=== PATIENT | male | born 1965 | race Caucasian/White ===

== ENCOUNTER 2017-06-06 01:12 | Inpatient (IN) ==
[2017-06-06] MEDS ORDERED: NS 1,000 ML IV ONE (01:21)
[2017-06-06] MEDS ORDERED: SALINE FLUSH 10ml SYRINGE IVF PRN (01:21)
[2017-06-06] MEDS ORDERED: ONDANSETRON 4 MG/2 ML INJECTION IVP ONE (01:21)
[2017-06-06] MEDS ORDERED: METOPROLOL 5mg/5ml INJECTION IVP ONE (01:32)
--- NOTE | 2017-06-06 01:57 | Emergency Department Report ---
Nausea/Vomiting/Diarrhea HPI - General Chief complaint: Nausea/Vomiting/Diarrhea Stated complaint: Vomiting Time Seen by Provider: 06/06/17 01:20 Source: patient, family, old records reviewed Mode of arrival: ambulatory Limitations: no limitations - History of Present Illness HPI Narrative: 52yo man presents to the ER for evaluation of nausea/vomiting. Pt has an extensive hx, including coarctation of the aorta, treated at age 5 and 42yo. Pt has a graft in place now; is supposed to be taking plavix (has an allergy to ASA ), but he has discontinued all of his medications. He had an OK 2 years ago ( explains it as 'aspiration' that caused his heart to stop); since then, pts states that his personality has changed - he is more angry/taciturn/ low frustration tolerance. Pt now refuses to see a physician; when his medication refills run out, he stops taking all of his medications. Pts states that his HTN, tachycardia, and other sx now are similar to his sx prior to his dx of coarctation 10 years ago. is afraid for the pts life; pt is minimizing his sx, wants treatment for his nausea, and discharge home. MD complaint: nausea, vomiting Onset (ago): hour(s) (24) Description of Vomiting: watery Description of Diarrhea: water Relieving factors: none Exacerbating factors: movement Associated symptoms: cough, nausea/vomiting, shortness of breath, weakness - Related Data Allergies Allergy/AdvReac Type Severity Reaction Status Date / Time aspirin Allergy Unknown EYE Verified 06/06/17 02:06 SWELLING amoxicillin AdvReac Intermediate HYPOTENSION Verified 06/06/17 02:06 clavulanic acid AdvReac Intermediate HYPOTENSION Verified 06/06/17 02:06 Review of Systems All systems: reviewed and negative except as stated Constitutional: Reports: as per HPI. Denies: fever, chills, weakness, weight change, night sweats Cardiovascular: Reports: as per HPI, chest pain, palpitations, dyspnea on exertion. Denies: orthopnea, edema, syncope, paroxysmal nocturnal dyspnea Gastrointestinal: Reports: as per HPI, nausea, vomiting, diarrhea (With vomiting ). Denies: abdominal pain, constipation, hematemesis, melena, hematochezia Neurological: Reports: as per HPI. Denies: headache, weakness, numbness, paresthesias, confusion, abnormal gait, vertigo Psychiatric: Reports: as per HPI, anxiety. Denies: depression, suicidal thoughts, homicidal thoughts, auditory hallucinations, visual hallucinations [facility] Patient Stated Medical History Cardiac Arrhythmia Yes Hypertension Yes MRSA Yes Physical Exam - Limitations Limitations: no limitations - General General appearance: alert, in no apparent distress - Normal Exams: Head:: Normocephalic without trauma Eyes:: Pupils are PERRLA w/ EOMI, No scleral icterus, irritation, or foreign bodies noted ENMT:: No facial trauma, nasal exudates, pharyngeal erythema, or exudates are noted Neck:: Full range of motion, without adenopathy Chest/Respirations:: Clear all cabrera, with good airflow, and symmetry bilaterally Lymphatic:: No lymphadenopathy Musculoskeletal:: No tenderness, or deformity noted, good range of motion, all extremities Integumentary:: No rashes, hives, or bruising noted, hair and nails, without abnormality Neurological:: Patient is alert, and oriented, cranial nerves, motor/sensory/ cerebellar, exams w/o gross deficits - Cardiovascular Cardiovascular exam: Present: normal rhythm, tachycardia, normal heart sounds, + S1, +S2. Absent: regular rate, systolic murmur, diastolic murmur, +S3, +S4 - Psychiatric Psychiatric exam: Present: agitated, anxious Course - Consultations Consultation #1: José Telemed: Time: 02:32 Vital Signs Pulse Rate 166 H 06/06/17 01:18 Respiratory Rate 20 06/06/17 01:18 Blood Pressure 210/153 H 06/06/17 01:18 Pulse Oximetry 97 06/06/17 01:18 Temperature 97.0 F 06/06/17 01:59 Pulse Rate 157 H 06/06/17 02:37 Respiratory Rate 24 06/06/17 02:37 Blood Pressure 171/99 H 06/06/17 02:37 Pulse Oximetry 96 06/06/17 02:37 Nausea/Vomiting/Diarrhea - [facility] Narrative Medical decision making narrative: On review of pts telemetry, it appeared that his tachy rhythm may be a-flutter. Since the dose of metoprolol had failed to improve his rate or BP, adenocard was given. There was no improvement with 6mg, but 12mg slowed pts heart rate enough to confirm A-flutter. Diltiazem 25mg was then given, with immediate improvement in pts rate and BP. Hospitalist was contacted - agreed to admit to CCU. Diltiazem drip was ordered to maintain rate and BP. - Differential Diagnosis Likely: traveler's diarrhea, gastroenteritis, drug-induced nausea and vomiting, dehydration (OK, Coarctation, ) - Medical Records Attestation: I reviewed the patient's medical records. - Lab Data Attestation: I reviewed the patient's lab results. Result diagrams: 06/06/17 01:40 06/06/17 01:40 Lab Results 06/06/17 06/06/17 Range/Units 01:40 01:40 WBC 13.3 H (4.5-11.0) T/MM3 RBC 5.21 (4.50-5.90) M/MM3 Hgb 16.3 (13.5-17.5) GM/DL Hct 47.0 (41-53) % MCV 90.2 (80-100) UM3 MCH 31.3 (26-34) UUG MCHC 34.7 (31-37) GM/DL RDW Std Deviation 41.2 (36.9-50.2) FL Plt Count 191 (130-400) T/MM3 MPV 9.5 (9.4-12.4) UM3 Immature Gran % (Auto) 0.2 (0.0-0.5) % Neut % (Auto) 84.6 H (33-66) % Lymph % (Auto) 7.4 L (23-45) % [place] % (Auto) 7.3 (0-9.0) % Eos % (Auto) 0.3 (0-4) % Baso % (Auto) 0.2 (0-2) % Neut # (Auto) 11.2 H (1.8-7.7) T/MM3 Lymph # (Auto) 1.0 (1-4.8) T/MM3 [place] # (Auto) 1.0 H (0-0.8) T/MM3 Eos # (Auto) 0.0 (0-0.5) T/MM3 Baso # (Auto) 0.0 (0-0.2) T/MM3 Abs Immat Gran (auto) 0.02 (0.00-0.03) T/MM3 Turbidity < 20 (0-20) Sodium 139 (134-144) MEQ/L Potassium 4.1 (3.6-5) MEQ/L Chloride 99 (98-107) MEQ/L Carbon Dioxide 28 (22-30) MEQ/L Anion Gap 12 (5-15) MEQ/L BUN 16.0 (9-20) MG/DL Creatinine 1.0 (0.8-1.5) MG/DL GFR Calculation 79 BUN/Creatinine Ratio 16 (6-26) RATIO Glucose 140 H (75-110) MG/DL Calculated Osmolality 271 (261-280) MOSM/KG Calcium 9.2 (8.4-10.2) MG/DL Icterus Index < 2 (0-7) Troponin I 0.058 (0-0.12) ng/ml B-Natriuretic Peptide 6940 H (0-175) pg/mL Lipase 49 (23-300) U/L Specimen Hemolysis < 15 (0-25) - Radiology Data Attestation: I reviewed the patient's radiology results. KUB: No acute CT pathology. Nonobstructing bowel gas pattern. No free air or fluid under the diaphragm. - EKG Data EKG #1 EKG attestation: Yes: I reviewed and interpreted this EKG. EKG shows normal: sinus rhythm, intervals, QRS complexes, ST-T waves Rate: tachycardia Disposition Clinical Impression: Coarctation of aorta Atrial flutter Qualifiers: Atrial flutter type: unspecified Qualified Code(s): I48.92 - Unspecified atrial flutter Nausea & vomiting Qualifiers: Vomiting type: unspecified Vomiting Intractability: non-intractable Qualified Code(s): R11.2 - Nausea with vomiting, unspecified Disposition: 02 To [facility] Acute Care Print Language: Persian Condition: Improved Referrals: Jarocho Mascorro MD [Family Provider] - Time of Disposition: 03:15 - Seen By: physician
[2017-06-06] MEDS ORDERED: ENOXAPARIN 80 MG/0.8 ML INJECTION SQ ONE (02:15)
[2017-06-06] MEDS ORDERED: ADENOSINE 6mg/2ml INJECTION IVP ONE (02:41)
[2017-06-06] MEDS ORDERED: DiltiaZEM 25 MG/5 ML INJECTION IVP ONE (02:59)
[2017-06-06] MEDS ORDERED: ADENOSINE IVP ONE (05:47)
--- NOTE | 2017-06-06 05:47 | History & Physical Report ---
History of Present Illness Date: 06/06/17 Chief complaint: n/v HPI: Please note that the patient was seen via telemedicine with nursing assistance on 06/06/2017 Mr. Bautista is a 52 yo man with h/o coarctation of the aorta s/p surgery at age 3.5 and then in 2007 aortic sheath? at [facility], and essential HTN poor compliance. Patient is accompanied by who is scared for and frustrated by as he has not been willing to take meds since running out in December, and he refuses to f/u with a doctor. 06/05/2017 after one day of n/v with then palpitations he was willing to come to ED. In ED patient with tachycardia not responsive to 1L NS and metoprolol 5mg IV so I was called. Cardiology eval recc with adenosine indeed suggested and patient found to be in aflutter with cardizem 20mg IV once given with rate then 80s and gtt started subsequently. No chest pain or sob, but definitely recent fevers and chills. When asked about diarrhea, the patient said yes, "coming out of both ends." Aware of recent norovirus locally, i asked about sick contacts. 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. Review of Systems All systems PM: 10-point ROS was reviewed, no additional remarkable complaints except PFSH Patient Stated Medical History Cardiac Arrhythmia Yes Hypertension Yes MRSA Yes Surgical History: oartic surgery at 5.5, and then 2007 - Social History Smoking status: Former smoker Medications Allergies Allergy/AdvReac Type Severity Reaction Status Date / Time aspirin Allergy Unknown EYE Verified 06/06/17 02:06 SWELLING amoxicillin AdvReac Intermediate HYPOTENSION Verified 06/06/17 02:06 clavulanic acid AdvReac Intermediate HYPOTENSION Verified 06/06/17 02:06 Exam Vital Signs: Temperature 97.0 F 06/06/17 01:59 Pulse Rate 157 H 06/06/17 02:37 Respiratory Rate 24 06/06/17 02:37 Blood Pressure 171/99 H 06/06/17 02:37 Pulse Oximetry 96 06/06/17 02:37 Telemetry Rhythm: A-flutter Height/Weight/BMI: Height 1.8 m Weight 77.4 kg - Constitutional Present: mild distress - Routine HEENT Exam Head: Present: normocephalic Eye: Present: EOMI - Routine Neck Exam Present: full ROM - Routine Respiratory Exam Present: CTA bilaterally. Absent: accessory muscle use - Routine Cardiovascular Exam Present: S1, S2 Comments: sounds regular on exam now with aflutter known, noted mild systolic murmur, no edema - Routine Abdominal Exam Present: soft, normoactive bowel sounds Comments: hyperactive, no guarding - Routine Extremities Exam Absent: cyanosis, clubbing, edema - Routine Back/Spine/Pelvis Exam Back/Spine: Present: full ROM - Routine Skin Exam Present: intact - Routine Neurological Exam Present: alert, oriented X3, CN II-XII intact Results - Labs CBC & Chem 7: 06/06/17 01:40 06/06/17 06:20 Assessment and Plan (1) Atrial flutter Current visit: Yes Status: Acute (2) Gastroenteritis Current visit: Yes Status: Acute (3) HTN (hypertension) Current visit: Yes Status: Acute (4) Coarctation of aorta Problem details: surgery x 2 in the past Current visit: Yes Status: Acute Assessment and Plan: 1. Atrial flutter with RVR now controlled rate on cardizem gtt. Cardiology to see with AM electrolytes, TSH, troponin. 2 a contributor along with noncomplliance. 2. Acute infectious VGE likely the local norovirus. IVF, repeat labs, prns for nausea, etc. 3. Essential HTN with noncompliance. Need to confirm prior meds. 4. Coarctation of the aorta s/p multiple surgeries--cardiology to see. 5. Hyperglycemia, likely stress induced. Recheck. Resuscitation Status: Full Code - Physician Narriative Physician: Seema Wellington MD Narriative: 06/06/17 13:18 Dr. Garcia's note reviewed. Mr. Bautista interviewed and examined. provide supplemental history, old records reviewed CC: Nausea/vomiting HPI: Mr. Bautista is a 52-year-old male with history of congenital heart disease/ coarctation of the aorta who had aortic repair done at [facility] in 2008 after prior surgery at age 5-1/2 or 6 years of age. He reports he's been in generally good health recently until 24 hours prior to admission when he developed cough followed by nausea and repetitive episodes of emesis of clear phlegm. Coughing seemed to trigger the episodes of vomiting. He was able to take clear liquids and Gatorade for a period of time but vomiting persisted until he simply had dry heaves. He denies bilious emesis or hematemesis. His believes he had fevers as he had night sweats and the patient ports feeling hot and cold with sweats intermittently. He had frequent formed stools in conjunction with the upper GI symptoms. He works at [employer] and subsequently has multiple exposures; his son also had a cough recently per history of the . Due to ongoing nausea and emesis he presented to the emergency room yesterday evening where he was found to be in narrow complex tachycardia with rate in 166. Blood pressure was elevated at 210/158. Adenosine was given and after 12 mg dose rhythm was confirmed to be atrial flutter. Diltiazem was initiated and he was admitted to the ICU on diltiazem drip. Patient denies preceding chest pain or awareness of palpitations. He denies lightheadedness but reports that he is felt weird. He's not been taking medications recently and his expressed concern that since an episode of respiratory arrest 2 years ago related to aspiration that required brief CPR (but did not require intubation) the patient has neglected his health and experienced personality change. He has not followed up with physicians in some time and has not refilled medications when prescriptions . PH/SH/FH: Congenital heart disease/coarctation of the aorta, hypertension, mitral valve endocarditis as a child, congestive heart failure prior to surgical repair of aorta. 2 aortic surgeries at age 5-06/26 and 2008. FH-patient is adopted, family history unknown. SH-remote history of tobacco use discontinued more than 25 years ago, occasional social use of alcohol, no illicit drug use. 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 Dr. Jarocho Mascorro is his primary care physician , Dr. Coffman his swamper. His is his alternate decision maker and the patient is a full code. ROS: 10 point review as described by Dr. Garcia/history of present illness. EXAM: General-NAD, alert; pulse 86 on diltiazem drip, blood pressure 182/90, 97.8, 92 % room air HEENT-PERRL, EOMI without nystagmus, conjunctiva clear, sclera anicteric, conjugate gaze, facial structures symmetric, oropharynx clear, neck supple and without adenopathy Lungs-respirations nonlabored, good airflow, breath sounds clear Cardiac-irregularly irregular rhythm, S1-S2 Abd-soft, nontender, without palpable mass, bowel sounds diminished but present Ext-without edema Skin-no generalized rash or wounds Neuro-cranial nerves 3-12 intact, motor tone/power normal upper and lower extremities, sensation intact to light touch and cold 4 extremities, no tremor Psych-calm, distant DATA: Chest x-ray and KUB is reviewed by myself demonstrating mild cardiomegaly and minor vascular congestion, abdominal films are unremarkable. Twelve-lead EKG also reviewed by myself demonstrating rapid narrow irregular tachycardia; subsequent telemetry with clear atrial flutter with variable rates White count 13.3 without left shift, hemoglobin 16.3. Electrolytes unremarkable , BUN 16, creatinine 1.0, glucose 160. TSH 3.01 ProBNP 6940, troponin 0.058-0.060 UA concentrated, +1 ketones A/P: Atrial flutter with RVR CHF Uncontrolled hypertension Acute gastroenteritis Dehydration Cough/URI Leukocytosis Hyperglycemia Dr. Coffman has been consulted versus us with management of the acute tachyarrhythmia and LOKESH/cardioversion is anticipated early this afternoon. Continue diltiazem drip for rate control pending procedure. Blood pressure remains uncontrolled. Review of old records indicates patient was previously on clonidine-will discuss antihypertensive regimen with Dr. oCffman after echocardiogram is completed. Although BNP is very elevated uncontrolled heart rate and blood pressure rather than volume excess are probable cause of pulmonary congestion and patient has additional signs of total volume depletion due to recent emesis. Continue low-volume fluid replacement therapy, anticipate resolution of pulmonary vascular congestion with improvement in blood pressure control and stabilization of heart rhythm/rate. Hyperglycemia likely stress reaction-Will monitor. Respiratory viral panel being obtained. Hospital Course Summary Disclaimer: The visit summary below is not to be considered part of the above Progress Note.
[2017-06-06] MEDS ORDERED: DiltiaZEM Drip 125 MG in NS 125 ML IV SCH (06:00)
[2017-06-06] MEDS ORDERED: METOCLOPRAMIDE 10mg/2ml INJECTION IVP PRN ×2 (06:03→17:47)
[2017-06-06] MEDS ORDERED: ONDANSETRON 4 MG/2 ML INJECTION IVP PRN (06:03)
[2017-06-06] MEDS ORDERED: NS with KCL 20 mEq 1,000 ML IV SCH (06:15)
[2017-06-06 06:19] VITALS: BMI 23.8
[2017-06-06] MEDS: DiltiaZEM Drip 125 MG in NS 125 ML IV SCH ×3 (06:33→18:59)
--- NOTE | 2017-06-06 08:18 | XRay Report ---
Indication: Vomiting PROCEDURE: XR acute abdomen series: Encounter: Initial Comparison: None. Findings: The patient is status post median sternotomy. There is mild cardiomegaly and pulmonary vascular congestion without overt interstitial pulmonary edema. No pleural effusion. Trachea is midline. No subdiaphragmatic free air. There is scattered gas and stool in the abdomen without evidence of obstruction or free air. No soft tissue mass or organomegaly. No abnormal calcification. No definite bony destructive process. IMPRESSION: No evidence for obstruction or perforation. No acute cardiopulmonary process. .
[2017-06-06] MEDS: CARVEDILOL 25 MG TABLET PO SCH ×2 (15:13→17:30)
[2017-06-06] MEDS ORDERED: SALINE FLUSH 10ml SYRINGE IV ONE (16:46)
[2017-06-06] MEDS ORDERED: MIDAZOLAM 2mg/2ml INJECTION IVP ONE (16:46)
[2017-06-06] MEDS ORDERED: FentaNYL 100 MCG/2 ML INJECTION IVP ONE (16:46)
[2017-06-06] MEDS ORDERED: AMLODIPINE 5 MG TABLET PO SCH (17:15)
[2017-06-06] MEDS ORDERED: RIVAROXABAN 20 MG TABLET PO SCH (17:30)
[2017-06-06] MEDS ORDERED: BISACODYL 10 MG SUPPOSITORY RECTALLY PRN (17:47)
[2017-06-06] MEDS ORDERED: PROMETHAZINE 25 MG INJECTION IVP PRN (17:47)
[2017-06-06] MEDS ORDERED: LORazepam 1 MG TABLET PO PRN (17:47)
[2017-06-06] MEDS ORDERED: MAG-AL + SIM ORAL LIQUID 30ml PO PRN (17:47)
[2017-06-06] MEDS ORDERED: OLANZapine 5 MG TABLET PO ONE (18:09)
[2017-06-06] MEDS ORDERED: SODIUM CL 3% INHAL.SOLN 15ml NEB AEROSOL PRN (18:31)
[2017-06-06] MEDS ORDERED: LISINOPRIL 20 MG TABLET PO PRN (18:53)
--- NOTE | 2017-06-06 19:09 | Progress Note ---
Progress Note: Mr. Bautista was seen at approximately 6:30 PM after several calls regarding panic attacks and elevated blood pressures. At the time I arrived he was just outside the ER doors pacing reporting that he couldn't catch his breath. He was hyperventilating and breath sounds were diminished. He previously been treated with a total of 1 mg of IV lorazepam followed by 5 mg of Zyprexa by mouth. His reported he described respiratory secretions that he couldn't cough up. Respiratory viral panel was positive for rhinovirus earlier today. After pacing for 5-10 minutes the patient agreed to return to the ICU for breathing treatment with Xopenex. Breath sounds improved progressively and at completion of the treatment the patient reported that he was breathing more comfortably and no longer felt that he had any secretions in his airway. When necessary's available for repeat treatments with Xopenex and hypertonic saline if sputum plugging appears likely. Blood pressure significantly elevated after breathing treatment-amlodipine started late this afternoon; lisinopril to be added if blood pressures remain high after he calms down. Sertraline 50 mg daily to be initiated in a.m. for chronic anxiety/panic attacks. Additional 35 minutes spent in patient care following initial visit this morning.
--- NOTE | 2017-06-06 20:50 | Cardiology Consult Note ---
History of Present Illness History of present illness: Mr. Bautista is a pleasant complex 52-year-old male well-known to me was last seen in my office on 12/10/2014 and an echocardiogram 02/24/2015 but has not returned for follow-up since. He has a history of a coarctation of the aorta repaired at age 6 then again with a reconstruction of the aortic arch by Dr. Kaur at age 42 following my referral to him.He presented to the office with extremely severe hypertension as high as 240/140. Subsequent workup on [facility] after admission to ICU with hypertensive emergency , included normal coronary angiogram unremarkable renal angiogram . 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 He had hypertensive heart disease with significant LVH and subsequently normalized LV ejection fraction after surgical and medical treatments. His last echocardiogram February 2015 showed normal LV size and function mild LVH and trace mitral regurgitation. Coarctation repair site was not examined. According to the and upon verification by reviewing medical records from February [address] Gaviria and Jarocho Mascorro short episode of intractable gastroenteritis vomiting and other previous hospitalization with apparently a brief respiratory arrest caused by bronchospasm/aspiration event. says the patient passed out completely and fell to the floor she activated EMS. A brief CPR was given and the thinks that he had personality changes afterwards and was not himself with some short-term memory problems. Serial troponins at that time were normal was dismissed home following day. Patient has long- standing history of anxiety and severe fluctuation and hypertension also history of white coat syndrome as well as hypotension and falls. according to the patient has a trust fund pays medical exspenses ,but the patient frequently refuses to go see doctors. According to the he has not seen any doctor for the past 2 years up until the episode yesterday. She believes he may have been out of his medications for at least a year and a half, patient admits to being out of his meds for at least 6 months . He s supposed to be taking Plavix amlodipine Coreg and lisinopril. He is Allergic to aspirin. Patient presented to [facility] on 06/05/2017 with a 1-day nausea and vomiting some some palpitations .He was finally willing to come the emergency department had tachycardia unresponsive to 1 L of normal saline and metoprolol 5 mg IV adenosine was given which apparently revealed atrial flutter waves and subsequently received IV diltiazem 20 mg and a drip started. pt had had some mild pulmonary congestion on chest x-ray and elevated proBNP,however due to his hypotension and tachycardia , he was was felt to be as intravascularly depleted and was treated with gentle hydration which was very well tolerated. At this time patient denies palpitations chest pain or dyspnea he is anxious and hungry and getting ice chips. He denies hematochezia melena or coffee ground emesis, according to presenting H &P he was experiencing some diarrhea. 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 Apparently they have been exposure to viral infections. The fragments subjective fever drenched in sweat when he awoke up for according the is admission no objective fever was recorded.No TIA/CVA type Sx. In addition to diltiazem has received one dose of Lovenox 80 mg around 2 AM then he has 40 mg daily scheduled. His atrial flutter and regular rate now is in the 80s on diltiazem drip at the time of my evaluation around 12:40 PM, this is down from 166 beats per minutes and emergency department. He is a blood pressure also came down nicely also on IV diltiazem, he was having severe hypertension prior to that. Review of Systems All systems PM: 10-point ROS was reviewed, no additional remarkable complaints except - Constitutional Constitutional: Present: as per HPI - Cardiovascular Cardiovascular: Present: palpitations, as per HPI. Absent: chest pain, syncope , dyspnea on exertion, orthopnea, edema - Respiratory Respiratory: Absent: dyspnea on exertion - Gastrointestinal Gastrointestinal: Present: change in bowel habits, nausea, vomiting. Absent: abdominal pain, coffee ground emesis, hematemesis, hematochezia - Neurological Neurological: Absent: abnormal movements, abnormal speech, focal weakness, frequent falls - Psychiatric Psychiatric: Present: anxiety PFSH Patient Stated Medical History Cardiac Arrhythmia Yes Congestive Heart Failure Yes Hypertension Yes Sleep Apnea No MRSA Yes Surgical History: oartic surgery [age], and then 2009 Family History: Unknown he was adopted - Social History Smoking status: Former smoker Alcohol intake frequency: 3 or more drinks per day (4-5 beers 5-6 days a week since February 2015 according to the ) Household members: spouse Current residence: Apartment/Private Home Medications Allergies Allergy/AdvReac Type Severity Reaction Status Date / Time aspirin Allergy Unknown EYE Verified 06/06/17 02:06 SWELLING amoxicillin AdvReac Intermediate HYPOTENSION Verified 06/06/17 02:06 clavulanic acid AdvReac Intermediate HYPOTENSION Verified 06/06/17 02:06 Exam Vital signs: Temperature 99.2 F 06/06/17 16:00 Pulse Rate 87 06/06/17 20:00 Respiratory Rate 21 06/06/17 19:31 Blood Pressure 141/66 H 06/06/17 19:31 Pulse Oximetry 96 06/06/17 19:31 - Constitutional no acute distress, well developed - Routine HEENT Exam Head: Present: normocephalic, atraumatic Eye: Present: EOMI, PERRL. Absent: proptosis ENT: Present: mucous membranes moist Nose: moist mucous membranes - Routine Neck Exam Present: supple, normal carotid upstroke. Absent: JVD, carotid bruit, lymphadenopathy, thyromegaly - Routine Chest/Breast/Axilla Exam Chest wall: Absent: tenderness - Routine Respiratory Exam Present: CTA bilaterally - Routine Cardiovascular Exam Present: no murmur, tachycardia. Absent: JVD - Routine Abdominal Exam Present: soft, normoactive bowel sounds, non distended, non tender. Absent: organomegaly, mass - Routine Extremities Exam Present: no edema, pulses intact (normal carotid femoral pulse delay. Normal and equal femoral pulses and radial bilaterally), normal capillary refill. Absent: cyanosis, clubbing, edema - Routine Skin Exam Present: intact, dry, warm. Absent: cyanosis, erythema - Routine Neurological Exam Present: alert, oriented X3, CN II-XII intact, vision grossly intact, hearing grossly intact, normal speech. Absent: motor deficit, facial asymmetry - Routine Psychiatric Exam Present: cooperative, anxious Results 06/07/17 04:54 06/07/17 04:54 Cardiac Enzymes 06/06/17 Range/Units 06:20 Troponin I 0.060 (0-0.12) ng/ml Comprehensive Metabolic Panel 06/06/17 Range/Units 06:20 Sodium 140 (134-144) MEQ/L Potassium 4.0 (3.6-5) MEQ/L Chloride 103 (98-107) MEQ/L Carbon Dioxide 25 (22-30) MEQ/L BUN 16.0 (9-20) MG/DL Creatinine 0.9 (0.8-1.5) MG/DL Glucose 119 H (75-110) MG/DL Calcium 8.7 (8.4-10.2) MG/DL Intake and Output 06/06/17 06/06/17 06/06/17 06:59 14:59 22:59 Intake Total 892.292 / 892.292 270.000 / 270.000 Output Total 200 / 200 Balance 692.292 / 692.292 270.000 / 270.000 Intake: IV 892.292 / 892.292 270.000 / 270.000 DiltiaZEM Drip 125 mg In Ns 125 75.625 / 75.625 86.667 / 86.667 ml @ 12.5 mls/hr IV .Q10H ANNALISA Rx#:[id number] NS with KCL 20 mEq 1,000 ml @ 816.667 / 816.667 183.333 / 183.333 100 mls/hr IV .Q10H ANNALISA Rx#: [id number] Output: Urine 200 / 200 Other: Urine Appearance Clear Urine Color Yellow Weight 77.7 kg 77.7 kg Patient Weight 06/07/17 06:59 Weight 77.7 kg - Imaging and Cardiology Cardiac cath: other (2008 normal coronary angiogram) EKG results: other (atrial flutter no acute changes) EKG interpretations - Dysrhythmias Supraventricular dysrhythmia: atrial flutter Assessment and Plan - Assessment and Plan Atrial flutter with RVR, new onset Coarctation of aorta s/p repair 2 with arch reconstruction of the arch in [address] [facility] [address] zayas Hypertension with hypertensive heart disease Noncompliance Anxiety disorder Excessive alcohol intake Indication alternatives and benefits of LOKESH cardioversion. Discussed with the patient and in detail complications including but not limited to possibility of esophageal irritation, pneumonia, perforation may be fatal , arrhythmia and stroke and is willing to proceed. For anti-coagulation. Lovenox ordered now stat implantable start XarELTO Skin to diltiazem drip following cardioversion start by mouth Coreg such as 12.5 -25 mg twice a day as discussed with Dr. Wellington [facility] Course Summary Disclaimer: The visit summary below is not to be considered part of the above Progress Note.
[2017-06-06] MEDS ORDERED: AMLODIPINE 5 MG TABLET PO PRN ×2 (21:15→21:17)
[2017-06-06] MEDS ORDERED: HYDRALAZINE 20 MG/ML INJECTION IVP PRN (22:21)
[2017-06-07] MEDS: LISINOPRIL 20 MG TABLET PO SCH ×2 (01:18→08:41)
--- NOTE | 2017-06-07 07:31 | XRay Report ---
EXAM: XR chest 1V LOCATION OF DICTATION: [facility] HISTORY: INCREASED O2 NEEDS COMPARISON: March 20, 2015 FINDINGS: Postsurgical changes of median sternotomy. The heart size is upper limits normal. There are hazy interstitial opacities within the bilateral lungs with possible right basilar infiltrates. There is no evidence for pleural effusion. There is no pneumothorax. The osseous structures are within normal limits for the patient's age. IMPRESSION: 1. Hazy interstitial opacities within the bilateral lungs and possible right basilar infiltrates/pneumonia. Follow-up is recommended. 2. Upper limits normal sized heart. .
[2017-06-07] MEDS: CARVEDILOL 25 MG TABLET PO SCH (08:42)
[2017-06-07] MEDS ORDERED: SERTRALINE 50 MG TABLET PO SCH (09:00)
[2017-06-07] MEDS ORDERED: ENOXAPARIN 40 MG/0.4 ML INJECTION SQ SCH (09:00)
[2017-06-07 09:39] VITALS: TEMP 98.6
--- NOTE | 2017-06-07 10:24 | Transesophageal Echocardiogram ---
DATE OF SERVICE 06/06/2017 PROCEDURES PERFORMED 1. Transesophageal echocardiogram. 2. DC cardioversion. 3. Moderate conscious sedation of approximately 45 minutes' duration. INDICATION New-onset atrial fibrillation in a patient with history of coarctation repair, hypertensive heart disease who has stopped his medications for at least 6 months and probably much longer than that. NARRATIVE OF PROCEDURE After indications, alternatives, risks and benefits of the procedure were fully discussed with the patient in detail, he agreed to proceed. He received IV sedation using IV Versed, fentanyl and Benadryl. Please refer to nursing notes for exact amount given. It was somewhat difficult to put him to sleep as the patient was extremely anxious. Cetacaine spray was applied to the oropharynx. I went ahead and advanced the Omniprobe to the stomach. Transgastric, lower and midesophageal images of good quality were obtained. Procedure was well tolerated. There was no immediate complication. FINDINGS 1. Cardiac Chambers. Left atrium is moderately enlarged. The right heart is normal in size. RV contractility appears normal. Visualized portions of thoracic aorta were examined and show what appears to be a graft in the aortic arch. There was no dilatation, aneurysmal changes, dissection or mobile atheromas. There was no abnormal blood flow identified. Screening for coarctation was negative with normal flow velocities recorded in the descending aorta. Interatrial septum appears intact. No demonstrable shunts on color- flow Doppler and bubble study without and with Valsalva/intraabdominal pressure maneuvers. Left atrial appendage was examined in detail in multiple projections. It gives multiple lobes and there are no clots and no smoke sign identified. Doppler shows flutter waves. Velocities were reduced in the range of 20-40 cm/sec. 2. Left Ventricle. Analysis shows borderline LVH. LV systolic function appears preserved although accurate ejection fraction is difficult to give in setting of atrial flutter with variable AV conduction/block, ejection fraction is greater than 55%. 3. Valves. Aortic, mitral, tricuspid and pulmonic valve structure and motion appeared normal. Normal valve excursion. 4. Doppler. Shows two jets of mitral regurgitation, estimated about 2+. No other valvular dysfunction is present. 5. The LAD and the left circumflex artery originate with a separate ostia from the left coronary cusp which appear patent. 6. No evidence of pericardial effusion, intracardiac masses, thrombi, vegetations or shunts. IMPRESSION 1. Moderate left atrial enlargement. 2. Borderline LVH with preserved LV systolic function. 3. [id number]-ir-ruwvqirx mitral regurgitation. 4. Unremarkable aortic coarctation repair site with no aneurysm, dissection or evidence of recurrent coarctation. 5. No left atrial/left atrial appendageal clot identified. 6. 2+ mitral regurgitation. DC CARDIOVERSION After adequate level of sedation was obtained, which was difficult requiring additional IV Versed, fentanyl and Benadryl (see comment above, see nursing notes), the patient finally had adequate sedation and then a single synchronized DC cardioversion shock was delivered through anterior-posterior position of the pads and 50 joules immediately placed the patient in sinus rhythm in the 80s. Blood pressure was normal. There was no immediate complication. IMPRESSION Successful DC cardioversion out of atrial flutter into normal sinus. MTDD
--- NOTE | 2017-06-07 11:38 | Discharge Summary ---
Discharge Information Date of admission: 06/06/17 03:45 Anticipated date of discharge: 06/07/17 Attending Physician: Seema Wellington MD Primary care physician: Jarocho Mascorro MD Consults: Consulting Provider: Rabia Coffman Reason For Exam: a-flutter w/ RVR - Discharge Diagnosis (1) Atrial flutter Status: Acute (2) HTN (hypertension) Status: Acute (3) Coarctation of aorta Status: Acute Atrial flutter with RVR, s/p cardioversion CHF, resolved Uncontrolled hypertension, improved Acute gastroenteritis, resolved Panic attacks Dehydration Rhinovirus URI Leukocytosis Hyperglycemia, resolved - Procedures Procedures: LOKESH with cardioversion on 06/06/17 - Laboratory Labs: Pro BNP on admission 6940, troponin 0.058; initial blood sugar 140 and white count 13.3 with unremarkable differential 06/07/17 04:54 06/07/17 04:54 - Microbiology Respiratory viral panel positive for rhinovirus - Radiology Radiology: Chest x-ray/KUBs on admission demonstrated cardiomegaly and minor vascular congestion; abdominal films were unremarkable. Repeat chest x-ray heart to be upper limits of normal size and hazy interstitial opacities in the lungs bilaterally. History of Present Illness HPI: Mr. Bautista is a 52 yo man with h/o coarctation of the aorta s/p surgery at age 5.5 and then in 2007 aortic sheath? at [place], and essential HTN poor compliance. Patient is accompanied by who is scared for and frustrated by as he has not been willing to take meds since running out in December, and he refuses to f/u with a doctor. 06/05/2017 after one day of n/v with then palpitations he was willing to come to ED. In ED patient with tachycardia not responsive to 1L NS and metoprolol 5mg IV so I was called. Cardiology eval recc with adenosine indeed suggested and patient found to be in aflutter with cardizem 20mg IV once given with rate then 80s and gtt started subsequently. No chest pain or sob, but definitely recent fevers and chills. When asked about diarrhea, the patient said yes, "coming out of both ends" although stools have been formed. 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 Hospital Course This is a general summary of the patient's hospital course. For more details refer to the complete medical record. Hospital course: Impression: Atrial flutter with RVR, s/p cardioversion CHF, resolved Uncontrolled hypertension, improved Acute gastroenteritis, resolved Panic attacks Dehydration Rhinovirus URI Leukocytosis Hyperglycemia, resolved Hospital course: Mr. Bautista was hospitalized with narrow complex tachycardia demonstrated to be rapid atrial flutter. Diltiazem drip was initiated in the emergency room and rate was adequately controlled in this manner. Blood pressure remained erratic. BNP was high however patient was oxygenating well after rate was controlled. He was seen in consultation by Dr. Coffman and underwent LOKESH with successful cardioversion to sinus rhythm. Diltiazem drip was discontinued and the patient was started on carvedilol and lisinopril for blood pressure control. He tested positive for rhinovirus explaining recent URI symptoms and had no further nausea and vomiting or diarrhea during hospital course. His described increased moodiness/irritability and forgetfulness over the past 2 years. Early in the evening on 06/06 the patient became very anxious followed by a sensation that he could not breathe with marked hyperventilation. He reports similar symptoms intermittently at home that resolved when he paces although this episode was more severe. He was treated with IV lorazepam and oral Zyprexa; he eventually was treated with a breathing treatment when he returned to his room. Between the 3 he described improvement in ability to breathe and was able to rest for several hours when another event occurred requiring readministration of 2 mg of IV lorazepam. He declined psychiatric evaluation. I recommended initiation of sertraline for underlying anxiety disorder and prescription was provided. Physical stable for discharge on 06/07 at which time he describes feeling drowsy after medications administered overnight. He does not feel weak. Continues to have cough productive of small amounts of clear or yellow mucus but has had no dyspnea this morning and denies chest pain or palpitations. He is slightly drowsy but able to respond to questions appropriately. Conjunctiva are slightly injected, respirations are nonlabored with good airflow and breath sounds were clear at the time of my evaluation. Cardiac rhythm is regular with normal S1 and S2. Abdomen is benign. Stable for discharge at this time on medications as described below. Patient is asked to follow-up with Dr. Mascorro in one week and Dr. Coffman in early June. Time spent with patient: discharge greater than 30 minutes Discharge Plan - Med Rec/Dispo Referrals/Follow Up: Rabia Coffman MD [Physician] - (Follow up appt on Jun.28 at 1100 with EKG.) Jarocho Mascorro MD [Family Provider] - 1 Week Prescriptions: New Albuterol Neb (0.083%) [Proventil Neb (0.083%)] 2.5 mg AEROSOL QID PRN #25 vial PRN Reason: Shortness Of Air/Wheezing Carvedilol [Coreg] 25 mg PO BIDWM #60 tab LORazepam [Ativan] 1 mg PO Q4H PRN #10 tab PRN Reason: Anxiety/Agitation Rivaroxaban [Xarelto] 20 mg PO WS #30 tab Sertraline [Zoloft] 50 mg PO DAILY #30 tab Amlodipine [Norvasc] 2.5 mg PO TID PRN #20 tab PRN Reason: Hypertension Lisinopril [Prinivil] 20 mg PO DAILY #30 tab - Disposition 01 Discharged Home, Self-Care - Dismissal Complete Discharge Instructions are:: Complete
--- NOTE | 2017-06-07 14:02 | Cardiology Progress Note ---
Subjective Interval history: Seen for follow-up for cardioversion. Feeling a little drowsy but has no other complaints this morning it had mild wheezing improved after following breathing treatment. Denies angina and dyspnea palpitations or dizziness. Has been up and about and walking. No headache or weakness blurred vision or TIA or strokelike symptoms. At telemetry labs vital signs x-ray and EKG reports reviewed in detail. He on telemetry had a short run of nonsustained PAT last night but remains in sinus rhythm this morning 70s and 80s adjustment in blood pressure medications may last night and scheduled lisinopril and change amlodipine to when necessary . It would be nice if he would take Xanax when necessary apparently is not receptive. Exam Vital signs: Temperature 98.6 F 06/07/17 09:00 Pulse Rate 102 H 06/07/17 09:00 Respiratory Rate 22 06/07/17 12:25 Blood Pressure 169/105 H 06/07/17 09:00 Pulse Oximetry 96 06/07/17 12:25 - Constitutional no acute distress - Routine HEENT Exam Head: Present: normocephalic, atraumatic Eye: Present: EOMI, PERRL ENT: Present: mucous membranes moist - Routine Neck Exam Present: normal carotid upstroke. Absent: JVD, carotid bruit, lymphadenopathy, thyromegaly - Routine Respiratory Exam Present: CTA bilaterally (generally clear), prolonged expiratory phase (in the bases) - Routine Cardiovascular Exam Present: RRR, no murmur, S4 - Routine Abdominal Exam Present: soft, normoactive bowel sounds, non distended, non tender. Absent: organomegaly, mass - Routine Extremities Exam Present: no edema, pulses intact, normal capillary refill. Absent: cyanosis, clubbing, edema - Routine Skin Exam Present: intact. Absent: cyanosis, erythema - Routine Neurological Exam Present: alert, oriented X3, CN II-XII intact, moving all extremities, vision grossly intact, hearing grossly intact, normal speech. Absent: motor deficit, hemineglect, facial asymmetry - Routine Psychiatric Exam Present: normal affect, normal thought process, cooperative, good insight, good judgment, anxious Results 06/07/17 04:54 06/07/17 04:54 Cardiac Enzymes 06/07/17 Range/Units 04:54 AST 45 (17-59) U/L CBC 06/07/17 Range/Units 04:54 WBC 12.2 H (4.5-11.0) T/MM3 RBC 4.89 (4.50-5.90) M/MM3 Hgb 15.2 (13.5-17.5) GM/DL Hct 45.1 (41-53) % Plt Count 173 (130-400) T/MM3 Neut # (Auto) 9.9 H (1.8-7.7) T/MM3 Lymph # (Auto) 1.1 (1-4.8) T/MM3 [place] # (Auto) 1.1 H (0-0.8) T/MM3 Eos # (Auto) 0.1 (0-0.5) T/MM3 Baso # (Auto) 0.0 (0-0.2) T/MM3 Comprehensive Metabolic Panel 06/07/17 Range/Units 04:54 Sodium 141 (134-144) MEQ/L Potassium 3.6 (3.6-5) MEQ/L Chloride 103 (98-107) MEQ/L Carbon Dioxide 29 (22-30) MEQ/L BUN 15.0 (9-20) MG/DL Creatinine 0.9 (0.8-1.5) MG/DL Glucose 97 (75-110) MG/DL Calcium 8.6 (8.4-10.2) MG/DL AST 45 (17-59) U/L ALT 109 H (21-72) U/L Alkaline Phosphatase 85 (38-126) U/L Total Protein 7.1 (6.3-8.2) G/DL Albumin 4.2 (3.5-5.0) G/DL Intake and Output 06/06/17 06/07/17 06/07/17 22:59 06:59 14:59 Intake Total 270.000 / 270.000 360 / 360 Output Total 700 / 700 Balance 270.000 / 270.000 -340 / -340 Intake: IV 270.000 / 270.000 DiltiaZEM Drip 125 mg In Ns 125 86.667 / 86.667 ml @ 12.5 mls/hr IV .Q10H ANNALISA Rx#:[id number] NS with KCL 20 mEq 1,000 ml @ 183.333 / 183.333 100 mls/hr IV .Q10H ANNALISA Rx#: [id number] Oral 360 / 360 Output: Urine 700 / 700 - EKG Interpretation EKG: sinus rhythm Assessment and Plan - Attestation Attestation Narrative: 06/07/17 14:04 Atrial flutter status post a LOKESH cardioversion Hypertension Acute viral syndrome Anxiety/panic disorder Concur with current treatment. Return appointment to see me with an EKG in early June as scheduled 06/07/17 14:05 Stressed to the patient importance of compliance with taking meds and keeping office appointments Diagnosis prognosis and natural history of atrial flutter and possibility of recurrence and other treatments it in the future WITH the patient and , and their question were answered to their satisfaction. He vows to comply. Hospital Course Summary Disclaimer: The visit summary below is not to be considered part of the above Progress Note. Hospital Course: Impression: Atrial flutter with RVR, s/p cardioversion CHF, resolved Uncontrolled hypertension, improved Acute gastroenteritis, resolved Panic attacks Dehydration Rhinovirus URI Leukocytosis Hyperglycemia, resolved Hospital course: Mr. Bautista was hospitalized with narrow complex tachycardia demonstrated to be rapid atrial flutter. Diltiazem drip was initiated in the emergency room and rate was adequately controlled in this manner. Blood pressure remained erratic. BNP was high however patient was oxygenating well after rate was controlled. He was seen in consultation by Dr. Coffman and underwent LOKESH with successful cardioversion to sinus rhythm. Diltiazem drip was discontinued and the patient was started on carvedilol and lisinopril for blood pressure control. He tested positive for rhinovirus explaining recent URI symptoms and had no further nausea and vomiting or diarrhea during hospital course. His described increased moodiness/irritability and forgetfulness over the past 2 years. Early in the evening on 06/06 the patient became very anxious followed by a sensation that he could not breathe with marked hyperventilation. He reports similar symptoms intermittently at home that resolved when he paces although this episode was more severe. He was treated with IV lorazepam and oral Zyprexa; he eventually was treated with a breathing treatment when he returned to his room. Between the 3 he described improvement in ability to breathe and was able to rest for several hours when another event occurred requiring readministration of 2 mg of IV lorazepam. He declined psychiatric evaluation. I recommended initiation of sertraline for underlying anxiety disorder and prescription was provided. Physical stable for discharge on 06/07 at which time he describes feeling drowsy after medications administered overnight. He does not feel weak. Continues to have cough productive of small amounts of clear or yellow mucus but has had no dyspnea this morning and denies chest pain or palpitations. He is slightly drowsy but able to respond to questions appropriately. Conjunctiva are slightly injected, respirations are nonlabored with good airflow and breath sounds were clear at the time of my evaluation. Cardiac rhythm is regular with normal S1 and S2. Abdomen is benign. Stable for discharge at this time on medications as described below. Patient is asked to follow-up with Dr. Mascorro in one week and Dr. Coffman in early June.
[2017-06-07 14:35] VITALS: BP 117/72; PULSE 74; RESP 31; O2SAT 95
== END 2017-06-07 13:25 | disposition home or self-care (01) | DRG 309 ==
LOC: ED 01:12 → CCU 03:45
PROVIDERS: ADMIT Hospitalist; ATTEND Internal Medicine